=== PATIENT | female | born 1970 | race Caucasian/White ===

== ENCOUNTER 2022-07-09 20:28 | Inpatient (IN) | payer OTHER ==
[~2022-07-09] VITALS: Ht 162.6 cm; Wt 86.6 kg
[2022-07-09 20:28] VITALS: BP 99/60
--- NOTE | 2022-07-09 20:30 | NUR ---
PT CUAUHTEMOC ALS. TAKEN TO BED 6
[2022-07-09 21:06] LABS: BASOPHILS % (AUTO) 0.3 % (0.0-2.0); EOSINOPHILS # (AUTO) 0.1 K/uL (0-0.4); EOSINOPHILS % (AUTO) 0.9 % (0.0-4.0); HEMATOCRIT 38.7 % (36-48); HEMOGLOBIN 12.5 g/dL (12.0-16.0); LYMPHOCYTES # (AUTO) 3.3 K/uL (2.5-16.5); LYMPHOCYTES % (AUTO) 33.9 % (20.5-51.1); MEAN CORPUSCULAR HEMOGLOBIN 25 pg (27-31); MEAN CORPUSCULAR HGB CONC 32 g/dL (33-37); MEAN CORPUSCULAR VOLUME 76.3 fL (80-94); MONOCYTES # (AUTO) 0.2 K/uL (0.8-1.0); MONOCYTES % (AUTO) 2.4 % (1.7-9.3); NEUTROPHILS # (AUTO) 6.1 K/uL (1.8-7.7); NEUTROPHILS % (AUTO) 62.5 % (42.2-75.2); PLATELET COUNT (AUTO) 281 K/uL (140-450); RED BLOOD CELL COUNT(AUTO) 5.08 MIL/uL (4.20-5.40); RED CELL DISTRIBUTION WIDTH 14.5 % (11.6-13.7); WHITE BLOOD COUNT (AUTO) 9.7 K/uL (4.8-10.8)
--- NOTE | 2022-07-09 21:18 | NUR ---
Dr. Olson examining patient.
--- NOTE | 2022-07-09 21:19 | NUR ---
PT BECAME LESS ALERT. NO LONGER ANSWERING QUESTIONS AND LESS RESPONSIVE TO EXTERNAL STIMULI. DR. GARCIA NOTIFIED.
[2022-07-09 21:21] LABS: ALBUMIN 3.4 g/dL (3.4-5.0); ANION GAP 17.1 (8-16); CARBON DIOXIDE 22.9 mmol/L (21-32); CREATININE 1.1 mg/dL (0.6-1.3); TOTAL BILIRUBIN 0.3 mg/dL (0.0-1.0)
--- NOTE | 2022-07-09 21:24 | NUR ---
PT DESATURATED TO 84%. PT PLACED ON NON-REBREATHER AT 15L. O2 SAT MAINTAINED AT 98%
[2022-07-09] MEDS ORDERED: NALOXONE 0.4 MG/ML VIAL IVP ONE (21:25)
--- NOTE | 2022-07-09 21:34 | NUR ---
RECIEVED CALL FROM FAMILY WHO STATED PT HAD COMPLAINT OF HEADACHE AND DIZZINESS BEFORE VOMITTING AND THEN PASSING OUT AT HOME. DR. GARCIA NOTIFIED.
--- NOTE | 2022-07-09 21:36 | NUR ---
PT TAKEN TO CT
--- NOTE | 2022-07-09 21:40 | NUR ---
SPOKE WITH DAUGHTER. SHE STATES MOTHER HAS HISTORY OF DIVERTICULITIS. SHES HAD EPISODES LIEK THIS WHEN SHES IN ALOT OF PAIN
--- NOTE | 2022-07-09 21:54 | NUR ---
PT RETURN FROM CT
[2022-07-09] MEDS ORDERED: KCL 20 MEQ/WATER INJ PREMIX 100 ML IV ONE (23:05)
[2022-07-09] MEDS ORDERED: NACL 0.9% 1,000 ML IV ONE ×2 (23:10→23:30)
[2022-07-09] MEDS ORDERED: MAG SULF 2000 MG/WATER PREMIX 50 ML IV ONE (23:45)
[2022-07-09] MEDS ORDERED: POTASSIUM CHLORIDE 10 MEQ TABER PO ONE (23:45)
--- NOTE | 2022-07-09 23:48 | NUR ---
ATTEMPTED TO COLLECT URINE. PT SAYS SHE IS TOO THIRSTY AND SHE CANNOT PEE YET. OFFERED PT WATER. PT IS NOW AWAKE AND ALERT
[2022-07-09] MEDS ORDERED: cefTRIAXone 1,000 MG VIAL ONE (23:50)
--- NOTE | 2022-07-10 00:59 | NUR ---
NOTIFED FAMILTY THAT PT WILL BE ADMITTED. FAMILY TO CALL IN THE AM TO GET UPDATE
[2022-07-10] MEDS ORDERED: NACL 0.9% 1,000 ML IV SCH (01:00)
--- NOTE | 2022-07-10 01:45 | NUR ---
PT AMBULATED TO WITH EVEN AND STEADY GAIT
[2022-07-10 01:58] LABS: APPEARANCE,URINE CLEAR (CLEAR); BILIRUBIN,URINE NEGATIVE (NEGATIVE); BLOOD, URINE TRACE-I (NEGATIVE); COLOR,URINE YELLOW (YELLOW); LEUKOCYTE ESTERASE ,URINE NEGATIVE (NEGATIVE); NITRITE, URINE NEGATIVE (NEGATIVE); UGLUCOSE NEGATIVE (NEGATIVE)
--- NOTE | 2022-07-10 02:00 | NUR ---
EMT WALKED URINE SAMPLE TO LAB
--- NOTE | 2022-07-10 02:48 | NUR ---
PT STATES PAIN 9/10 HEADACHE. PAGED COMBINATION WINDOW INSTALLER . COMBINATION WINDOW INSTALLER GAVE VERBAL ORDER. MORHINE 2MG IV PUSH Q4 PRN
[2022-07-10] MEDS ORDERED: MORPHINE SULFATE 2 MG/ML SYR IVP PRN ×2 (02:50→07:35)
[2022-07-10 03:35] LABS: RBC,URINE 0-5 /HPF (0-5); WBC,URINE 0-5 /HPF (0-5)
--- NOTE | 2022-07-10 04:56 | NUR ---
PT ALTERED. WHEN ASKED FOR WHAT AT HOME MEDS SHE SAID SHE DOESNT KNOW WHAT MED SHE TAKES
[2022-07-10 06:40] LABS: HEMATOCRIT 35.1 % (36-48); HEMOGLOBIN 11.3 g/dL (12.0-16.0); MEAN CORPUSCULAR HEMOGLOBIN 24 pg (27-31); MEAN CORPUSCULAR HGB CONC 32 g/dL (33-37); MEAN CORPUSCULAR VOLUME 75.6 fL (80-94); PLATELET COUNT (AUTO) 265 K/uL (140-450); RED BLOOD CELL COUNT(AUTO) 4.65 MIL/uL (4.20-5.40); RED CELL DISTRIBUTION WIDTH 14.8 % (11.6-13.7)
[2022-07-10 06:57] LABS: ANION GAP 15.5 (8-16); CARBON DIOXIDE 21.8 mmol/L (21-32); CREATININE 0.9 mg/dL (0.6-1.3); POTASSIUM 4.3 mmol/L (3.5-5.1)
[2022-07-10 07:15] LABS: WHITE BLOOD COUNT (AUTO) 25.5 K/uL (4.8-10.8)
--- NOTE | 2022-07-10 07:22 | NUR ---
Pt report given to [facility]. Transfer of care at this time.
--- NOTE | 2022-07-10 07:23 | NUR ---
Recevied report from EWA Ramsey for transfer of care.
[2022-07-10] MEDS ORDERED: DOCUSATE SODIUM 100 MG GELCAP PO PRN (07:35)
[2022-07-10] MEDS ORDERED: POTASSIUM CHLORIDE 10 MEQ TABER PO PRN (07:35)
[2022-07-10] MEDS ORDERED: ONDANSETRON 4 MG/2 ML VIAL IVP PRN (07:35)
[2022-07-10] MEDS ORDERED: ZOLPIDEM 10 MG TAB PO PRN (07:35)
--- NOTE | 2022-07-10 08:05 | NUR ---
[email or web address]
[2022-07-10 08:10] LABS: LYMPHOCYTES % (MANUAL) 3 % (20-46); MONOCYTES % (MANUAL) 4 % (5-12)
--- NOTE | 2022-07-10 08:15 | NUR ---
Patient returned from imaging
--- NOTE | 2022-07-10 08:24 | NUR ---
Patient will be admitted to care of Dr. Martinez. Admited to Med-Surg. Will go to room 112-B. Belongings list completed. Report to AMEENA Mortensen.
--- NOTE | 2022-07-10 09:06 | NUR ---
RECEIVE ENDORSEMENT FROM ER NURS THAT PATIENT IS ALERT WITH NO ACUTE DISTRESS REPORT. PATIENT ADMIT FROM HOME FOR ALERTED MENTAL STATUS MAYBE 2/2 DEHYDRATION, HX OF DM, DIVERTICULITIS. PATIENT IS FULL COD, W/ NKA, ACCUCHECK AC&HS ON ROOM AIR, MED/SURG, ON REGULAR DIET. CURRENT ON NS @60ML/HR VIA PIV L. AC 20G. WILL CONTINUE TO MONITOR
[2022-07-10 09:16] VITALS: BP 137/68
[2022-07-10] MEDS: PIPERACILLIN/TAZOBACTAM 3.375 GM in DEXTROSE 5% 50 ML IV SCH ×2 (11:23→17:42)
--- NOTE | 2022-07-10 12:21 | NUR ---
SW MET WITH PATIENT AND SAMM (DAUGHTER) AT BEDSIDE TO COMPLETE ASSESSMENT. PT CONFIRMS LIVING AT THE ADDRESS ON FILE WITH HER AND FOUR CHILDREN. PT IDENTIFIES EMERGENCY CONTACT AND MDM VIGNESH ALANIS (DAUGHTER) [phone] AND SAMM ALANIS (DAUGHTER) [phone]. PT DENIED HAVING AD IN PLACE AND ACCEPTED AD OFFERED BY KYLE. PT REPORTS MEETING WITH HER PCP REGULARLY; LAST VISIT MAY 2022. PT IS MEDICATION COMPLIANT AND DENIES BARRIERS ACCESSING NEEDED MEDICATION. PT RECEIVES MEDICATION AT [facility] ON [address] IN [place]. PT DENIES FOOD INSECURITY. PT DENIES MENTAL HEALTH AND SUBSTANCE USE HX. PT REPORTS BEING INDEPENDENT IN ALL ACTIVITIES AND DENIES USE OF DME EQUIP. DC PLAN IS FOR PT TO RETURN HOME WITH FAMILY PROVIDING TRANSPORTATION AND AIDING IN REQUIRED CARE, IF NEEDED. KYLE INQUIRED ON ADDITIONAL RESOURCES NEEDED; PT DECLINED AT THIS TIME.
[2022-07-10] MEDS: ACETAMINOPHEN 325 MG TAB PO PRN (14:14)
--- NOTE | 2022-07-10 15:26 | NUR ---
DC [age] YRS OLD FEMALE PATIENT WAS ADMITTED FROM HOME WITH A DX OF DEHYDRATION, ALOC AND LACTIC ACIDOSIS. PATIENT HAS A HX OF HYPERTENSION. CXR SHOWED PULMONARY VASCULAR CONGESTION EARLY PNEUMONIA. RAPID COVIDT TEST NEGATIVE. CT ABD/PELVIS SHOWED STIPPLED RIGHT HEPATIC CALCIFICATIONS, POSSIBLE HEMANGIOMA. CT PELVIS SHOWED THE UTERUS IS ENLARGED AND LOBULATED LIKELY CONTAINING MULTIPLE MASSES. HEAD CT NEGATIVE . ADMINISTERED IVF, IV ABX ZOSYN AND PAIN MEDS MORPHINE. CONSULTED WITH ID DR PITTS. DC PLAN TO GO HOME WHEN STABLE. CM TO FOLLOW
--- NOTE | 2022-07-10 15:46 | NUR ---
PATIENT HAS BEEN SCREENED AND CATEGORIZED MODERATE NUTRITION RISK. PATIENT WILL BE SEEN WITHIN 3-[address]. [address]
[2022-07-10 16:00] VITALS: BP 127/67
--- NOTE | 2022-07-10 19:33 | NUR ---
ENDORSE PATIENT TO PM SHIFT NURSE WITH PATIENT REST IN BED, DAUGHTER AT BEDSIDE. NO ACUTE DISTRESS NOTED, PIV RAC 20G NS INFUSING @60ML/HR
--- NOTE | 2022-07-10 20:00 | NUR ---
RECEIVED BEDSIDE REPORT FROM THE DAY RN URIEL REGARDING THE PATIENT FOR CONTINUITY OF CARE. RECEIVED PATIENT A/A/OX4, LAYING IN BED NOT IN ANY DISTRESS AND NO COMPLAIN AT THIS TIME. PT DENIES ANY CHEST PAIN, SOB,PALPITATIONS AND DIZZINESS. IVF INFUSING ORDERED. NOTED THE PATIENT IV ON THE LT FOREARM, PUFFY AND INFILTRATED. DC/D THE IV AND WILL PLACE A NEW IV. DISCUSSED POC WITH THE PATIENT AND VERBALIZED UNDERSTANDING. FALL PRECAUTION IMPLEMENTED. INSTRUCTED TO CALL FOR ASSISTANCE AT ALL TIMES. CALL LIGHT WITHIN REACH. WILL CONTINUE POC.
--- NOTE | 2022-07-10 22:00 | NUR ---
ALL DUE MEDICATIONS GIVEN ORDERED. NO ADVERSE DRUG REACTION NOTED AND NO COMPLAIN FROM THE PATIENT. WILL CONTINUE OBSERVATION. CALL LIGHT WITHIN REACH.
[2022-07-10] MEDS ORDERED: VANCOMYCIN PER PHARMACY MC PRN (23:45)
[2022-07-11] VITALS: BP 148/63
[2022-07-11] MEDS ORDERED: MAG SULF 2000 MG/WATER PREMIX 50 ML IV PRN
--- NOTE | 2022-07-11 | NUR ---
PATIENT VITAL SIGNS STABLE, AFEBRILE, SATING 97% ON RA. DENIES PAIN AT THIS TIME. NOT IN ANY DISTRESS. WILL CONTINUE OBSERVATION. CALL LIGHT WITHIN REACH.
[2022-07-11] MEDS: PIPERACILLIN/TAZOBACTAM 3.375 GM in DEXTROSE 5% 50 ML IV SCH ×4 (00:37→18:19)
[2022-07-11] MEDS ORDERED: VANCOMYCIN 1,000 MG VIAL ONE (00:39)
[2022-07-11] MEDS ORDERED: VANCOMYCIN 1GM/DEXT 5% PREMIX 200 ML IV ONE (01:00)
[2022-07-11] MEDS ORDERED: WATER STERILE 10 ML MC ONE (01:13)
[2022-07-11] MEDS: VANCOMYCIN 500 MG VIAL PO SCH ×2 (01:25→06:03)
[2022-07-11] MEDS ORDERED: amLODIPine 5 MG TAB PO SCH ×3 (02:20→21:00)
--- NOTE | 2022-07-11 02:43 | NUR ---
PT VERBALIZED EARLIER THAT HER DAUGHTER GAVE THE DAY AMEENA TREVINO THE LIST OF HER MEDICATION AND ASKED WHY ITS NOT GIVEN TO HER. I LOOK AT THE PT MED RECONCILIATION NONE OF THE PATIENT MEDICATIONS ARE INPUT BY AMEENA TREVINO. I ASKED THE PATIENT FOR THE LIST OF HER MEDICATIONS AND PER PT SHE DOESN'T HAVE IT. PATIENT ABLE TO GET A PICTURE OF HER BP MEDICATION BOTTLE FROM HER DAUGHTER. PT TAKES AMLODIPINE 5 MG PO QHS. MESSAGED DR LABOY AND OBTAINED A NEW ORDER FOR THE PATIENT BP MEDS. CALLED PHARMACY TO VERIFY THE ORDER. BP MEDICATION GIVEN TO THE PATIENT ORDERED.
--- NOTE | 2022-07-11 04:00 | NUR ---
MADE ROUNDS . PATIENT STILL ASLEEP ,EASY TO AROUSE. NOT IN ANY DISTRESS. WILL CONTINUE OBSERVATION.
--- NOTE | 2022-07-11 06:00 | NUR ---
NO ACUTE EVENT THROUGHOUT THE NIGHT. PATIENT NOT IN ANY DISTRESS AND NO COMPLAIN AT THIS TIME. PATIENT STABLE. ALL NEEDS ATTENDED. WILL ENDORSE THE PATIENT TO THE ONCOMING NURSE FOR CONTINUITY OF CARE.
--- NOTE | 2022-07-11 07:25 | NUR ---
ENDORSED PATIENT TO THE ONCOMING RN FOR CONTINUITY OF CARE. PATIENT STABLE. SIGNING OFF.
--- NOTE | 2022-07-11 07:26 | NUR ---
RECEIVED BEDSIDE REPORT FROM MACHINE SCALLOP CUTTER NURSE FOR CONTINUOUS OF CARE, PT RESTING, NO DISTRESS NOTED, AWAKE ALERT ABLE TO LET NEEDS KNOWN. IV TO RIGHT HAND 22G PATENT INTACT, INFUSING WELL. PT ON ROOM AIR, NO SOB NOTED, INITIAL ASSESSMENT DONE, ALL SAFETY PRECAUTION MET, CALL LIGHT WITHIN REACH, WILL CONTINUE TO MONITOR.
[2022-07-11 07:32] LABS: BASOPHILS % (AUTO) 0.2 % (0.0-2.0); EOSINOPHILS # (AUTO) 0.2 K/uL (0-0.4); EOSINOPHILS % (AUTO) 1.8 % (0.0-4.0); LYMPHOCYTES # (AUTO) 1.8 K/uL (2.5-16.5); LYMPHOCYTES % (AUTO) 16.7 % (20.5-51.1); MEAN CORPUSCULAR HEMOGLOBIN 25 pg (27-31); MEAN CORPUSCULAR HGB CONC 32 g/dL (33-37); MEAN CORPUSCULAR VOLUME 76.3 fL (80-94); MONOCYTES # (AUTO) 0.7 K/uL (0.8-1.0); MONOCYTES % (AUTO) 6.4 % (1.7-9.3); NEUTROPHILS # (AUTO) 8.3 K/uL (1.8-7.7); NEUTROPHILS % (AUTO) 74.9 % (42.2-75.2); PLATELET COUNT (AUTO) 216 K/uL (140-450); RED BLOOD CELL COUNT(AUTO) 4.45 MIL/uL (4.20-5.40); RED CELL DISTRIBUTION WIDTH 14.8 % (11.6-13.7); WHITE BLOOD COUNT (AUTO) 11.1 K/uL (4.8-10.8)
[2022-07-11 07:48] LABS: ANION GAP 11.6 (8-16); CARBON DIOXIDE 25.4 mmol/L (21-32); CREATININE 0.7 mg/dL (0.6-1.3)
[2022-07-11 08:00] VITALS: BP 154/94
[2022-07-11] MEDS: VANCOMYCIN HCL 25 MG/ML SOLN PO SCH ×2 (12:22→18:19)
[2022-07-11] MEDS: VANCOMYCIN HCL 1.25 GM in DEXTROSE 5% 250 ML IV SCH (13:47)
[2022-07-11 16:00] VITALS: BP 157/91
--- NOTE | 2022-07-11 18:00 | NUR ---
NOTED PT HAD NOT DO ANY BM, UNABLE TO COLLECT CDIFF SAMPLE.
--- NOTE | 2022-07-11 19:30 | NUR ---
ENDORSED PT TO C PROGRAMMER NURSE, PT STABLE.
--- NOTE | 2022-07-11 19:31 | NUR ---
RECEIVED PATIENT FROM ZACHARY, IN BED WITH FAMILY MEMBER (SON) AT BEDSIDE. PATIENT ALERT AND ORIENTED X 4. ABLE TO TELL NURSING WHY SHE IS IN THE HOSPITAL. PATIENT IS AWARE THAT STOOL IS NEEDED TO RULE OUT C-DIFF. HAT WAS PLACED IN HER PATIENT WILL INFORM NURSING IF AND WHEN SHE HAS A BOWEL MOVEMENT. PATIENT DENIES ANY PAIN/DISCOMFORT AT THIS TIME. PATIENT IS BREATHING WITHOUT DISTRESS OR DIFFICULTY. PATIENT WAS INFORMED TO USE CALL LIGHT FOR ALL NEEDS ANS ASSISTANCE. PATIENT UNDERSTOOD AND AGREED. [email or web address]
[2022-07-11] MEDS: ACETAMINOPHEN 325 MG TAB PO PRN (20:40)
--- NOTE | 2022-07-11 20:41 | NUR ---
PATIENT WAS GIVEN TYLENOL FOR MID PAIN AND LOW GRADE TEMP. [email or web address]
--- NOTE | 2022-07-11 22:31 | NUR ---
PATIENT STATED HEADACHE WAS GONE. NURSING INFORMED PATIENT TO USE CALL LIGHT FOR ANY NEEDS. PATIENT UNDERSTOOD AND AGREED. CALL LIGHT WITHIN REACH. [email or web address]
--- NOTE | 2022-07-11 23:36 | NUR ---
Patient's Plan of Care was discussed and reviewed with EWA wright
[2022-07-12] MEDS: PIPERACILLIN/TAZOBACTAM 3.375 GM in DEXTROSE 5% 50 ML IV SCH ×3 (00:09→12:06)
[2022-07-12] MEDS: VANCOMYCIN HCL 25 MG/ML SOLN PO SCH ×3 (00:29→12:05)
--- NOTE | 2022-07-12 01:26 | NUR ---
PATIENT IN BED ASLEEP. SIDE RAILS UP X 2. NO NOTED PAIN/DISCOMFORT. NO NOTED S/S OF RESPIRATORY DISTRESS. CALL LIGHT WITHIN REACH. [email or web address]
[2022-07-12] MEDS: VANCOMYCIN HCL 1.25 GM in DEXTROSE 5% 250 ML IV SCH ×2 (01:32→13:00)
--- NOTE | 2022-07-12 03:03 | NUR ---
PATIENT WAS NOTED IN BED ASLEEP. PATIENT'S CHEST NOTED RISING AND FALLING WITHOUT DISTRESS. NO NOTED S/S OF PAIN/DISCOMFORT. SIDE RAILS UP X 3 FOR SAFETY. CALL LIGHT WITHIN REACH FOR ASSISTANCE. [email or web address]
[2022-07-12 04:00] VITALS: BP 152/83
--- NOTE | 2022-07-12 05:19 | NUR ---
NO BOWEL MOVEMENT AT THIS TIME. PATIENT REMAINS IN BED ASLEEP. NO NOTED S/S OF PAIN/DISCOMFORT. NO NOTED S/S RESPIRATORY DISTRESS. SIDE RAIL UP X 2. CALL LIGHT WITHIN REACH. [email or web address]
--- NOTE | 2022-07-12 07:17 | NUR ---
ENDORSED PATIENT TO AMEE LINDQUIST, PATIENT WAS STABLE AT THE TIME OF SHIFT REPORT. ENDORSED TO GET CLARIFICATION STRICT I AND O WITH MD BUT NOT ADVISEMENT AT THIS TIME. [email or web address] Addendum: 07/12/22 at 0722 by Zakiya Tarango LVN PREVIOUS NOT WAS AN ERROR. WRONG PATIENT. ENDORSED PATIENT TO KIRILL LINDQUIST FOR CONTINUITY OF CARE. PATIENT WAS STABLE AT THE CHANGE OF SHIFT. [email or web address]
--- NOTE | 2022-07-12 07:30 | NUR ---
RECEIVED REPORT FROM DIE MAKER STAMPING NURSE FOR CONTINUITY OF CARE, POC DISCUSSED. PT RESTING IN BED WITH NO ACUTE S/S OF DISTRESS. ALL SAFETY MEASURES IN PLACE, CALL LIGHT WITHIN REACH. WILL CONTINUE TO MONITOR.
[2022-07-12 07:37] LABS: BASOPHILS % (AUTO) 0.4 % (0.0-2.0); EOSINOPHILS # (AUTO) 0.2 K/uL (0-0.4); HEMATOCRIT 37.5 % (36-48); HEMOGLOBIN 12.4 g/dL (12.0-16.0); LYMPHOCYTES # (AUTO) 1.7 K/uL (2.5-16.5); LYMPHOCYTES % (AUTO) 21.7 % (20.5-51.1); MEAN CORPUSCULAR HEMOGLOBIN 25 pg (27-31); MEAN CORPUSCULAR HGB CONC 33 g/dL (33-37); MEAN CORPUSCULAR VOLUME 75.6 fL (80-94); MONOCYTES # (AUTO) 0.7 K/uL (0.8-1.0); MONOCYTES % (AUTO) 8.3 % (1.7-9.3); NEUTROPHILS # (AUTO) 5.4 K/uL (1.8-7.7); NEUTROPHILS % (AUTO) 66.6 % (42.2-75.2); PLATELET COUNT (AUTO) 262 K/uL (140-450); RED BLOOD CELL COUNT(AUTO) 4.97 MIL/uL (4.20-5.40); RED CELL DISTRIBUTION WIDTH 14.4 % (11.6-13.7); WHITE BLOOD COUNT (AUTO) 8.1 K/uL (4.8-10.8)
[2022-07-12 07:52] LABS: ANION GAP 13.5 (8-16); CARBON DIOXIDE 27.3 mmol/L (21-32); CREATININE 0.8 mg/dL (0.6-1.3); POTASSIUM 3.8 mmol/L (3.5-5.1)
[2022-07-12 08:00] VITALS: BP 163/94
--- NOTE | 2022-07-12 09:30 | NUR ---
PT HAD BM, BM FORMED, NOTIFIED DR PITTS REGARDING LAB REFUSING SAMPLE DUE TO IT NOT MEETING REQUIREMENT FOR CDIFF. DR MENARD ORDERED TO CANCEL ORDER. FOLLOWED THROUGH
[2022-07-12] MEDS ORDERED: AMOX-999 PO (11:06)
[2022-07-12] MEDS ORDERED: ONDA-188 PO (11:07)
--- NOTE | 2022-07-12 14:45 | NUR ---
PT WAS DISCHARGED IN STABLE CONDITION. ALL EDUCATION PROVIDED. ALL QUESTIONS ANSWERED. IVS REMOVED, ALL BELONGINGS IN POSSESSION. WILL CONTINUE TO MONITOR.
== END 2022-07-12 14:45 | disposition home or self-care (01) | DRG 70 ==
LOC: MED 20:28 → MTU 07-10 00:30 → MMU 07-10 00:39 → MTU 07-10 05:00
PROVIDERS: ADMIT Family Medicine; ATTEND Family Medicine
DX: G93.41 Metabolic encephalopathy (principal); J18.9 Pneumonia, unspecified organism; I10 Essential (primary) hypertension; D50.9 Iron deficiency anemia, unspecified; Z20.822 Contact with and (suspected) exposure to COVID-19
CPT/HCPCS: 36415; 70450; 71045; 71046; 80048; 80053; 80202; 81001; 82140; 82948; 83036; 83605; 83735; 84484; 85025; 85379; 87040; 87045; 87086; 89055; 93005; 96361; 96365; 96375; 99291; G0482; J0696; J1644; J2270; J2310; J2543; J3370; J3475; J3480; J7030; J7060